=== PATIENT | female | born 1935 | race Native Hawaiian/Other Pacific Islander ===

== ENCOUNTER 2017-09-14 10:02 | Outpatient (CLI) | payer OTHER | END 2017-09-14 20:27 | disposition home or self-care (01) | LOC: CT 10:02 | DX: R41.82 Altered mental status, unspecified (principal); R51 Headache ==

== ENCOUNTER 2018-03-21 03:07 | Outpatient (CLI) | payer OTHER | END 2018-03-21 03:23 | disposition short-term general hospital (02) | LOC: AMB 03:07 | DX: M62.81 Muscle weakness (generalized) (principal) | CPT/HCPCS: A0425; A0427 ==

== ENCOUNTER 2020-07-15 15:55 | Outpatient (CLI) | payer OTHER | END 2020-07-15 22:54 | disposition home or self-care (01) | LOC: CT 15:55 | PROVIDERS: ATTEND Internal Medicine | DX: R51.9 Headache, unspecified (principal); R42 Dizziness and giddiness; R53.83 Other fatigue; R53.1 Weakness ==